=== PATIENT | female | born 1985 | race Caucasian/White ===

== ENCOUNTER → 2021-04-27 | Outpatient (CLI) | payer BC ==
[~2021-04-27] MED LIST: B-12 PO; LEVOTHYROXINE100 MCG PO; LEVOTHYROXINE88 MCG PO; LEXAPRO10 MG PO; VITAMIN D2000 UNI1 PO
== END ==
LOC: CT 16:22
PROVIDERS: ATTEND Podiatrist Foot & Ankle Surgery
DX: S93.321A Subluxation of tarsometatarsal joint of right foot, initial encounter (principal)

== ENCOUNTER → 2023-10-23 | Day surgery (SDC) | payer BC, OTHER ==
[~2023-10-23] MED LIST changes: +CEFTRIAXONE 1 GM VIAL ONE; +CEFUROXIME250 MG PO; +CHOLESTYRAMINE L4 GM PO; +DEXAMETHASONE SOD PHOS INJ 4 MG/ML SDV ONE; +FENTANYL CITRATE/PF 100MCG/2 ML INJ ONE; +IOPAMIDOL 610MG/1ML 300 MG/ML VIAL IV ONE; +KETOROLAC TROMETHAMINE 30 MG/ML VIAL ONE; +LACTATED RINGER'S 1,000 ML ONE; +LEVOTHYROXINE75 MCG PO; +LIDOCAINE HCL 2% LOCAL INJ 5 ML SDV VIAL INJ ONE; +ONDANSETRON HCL INJ 2MG/ML 2ML 2 MG/ML VIAL ONE; +ONDANSETRON ODT4 MG PO; +PHENYLEPHRINE HCL 1% 10 MG/ML VIAL ONE; +PROMETHAZINE HC25 M1 PO; +PROPOFOL IV EMULSION 10 MG/ML 20 ML VIAL ONE; +PYRIDIUM100 MG PO; +SEVOFLURANE INHAL SOLN 250 ML PEN BTL ONE; +SUGAMMADEX SODIUM 200 MG/2 ML VIAL IV ONE; +ULTRAM 50MG50 MG PO
[2023-10-23 07:26] VITALS: TEMP 98.5
[2023-10-23 08:06] VITALS: BP 146/93; PULSE 71; RESP 16; O2SAT 99
== END | disposition home or self-care (01) ==
LOC: OR 05:26
PROVIDERS: ATTEND Urology
DX: N13.30 Unspecified hydronephrosis (principal); N13.5 Crossing vessel and stricture of ureter without hydronephrosis; Q62.5 Duplication of ureter; Z43.6 Encounter for attention to other artificial openings of urinary tract; N39.0 Urinary tract infection, site not specified; Q62.11 Congenital occlusion of ureteropelvic junction; Z87.442 Personal history of urinary calculi; E03.9 Hypothyroidism, unspecified; M54.9 Dorsalgia, unspecified; F41.9 Anxiety disorder, unspecified; F17.200 Nicotine dependence, unspecified, uncomplicated; Z79.899 Other long term (current) drug therapy; Z84.1 Family history of disorders of kidney and ureter
CPT/HCPCS: 50389; 52332; 52351; 74420; 81025; C1758 ×2; C1769; C2617; J0696; J1100; J1885; J2001; J2371; J2405; J2704; J3010; J7121; Q9967